=== PATIENT | female | born 1990 | race Caucasian/White ===

== ENCOUNTER 2020-04-09 12:22 | Emergency (ER) | payer OTHER ==
[~2020-04-09] VITALS: Ht 170.2 cm; Wt 107.5 kg
[2020-04-09 12:27] VITALS: BP 139/90; Ht 170.2 cm; Wt 107.5 kg
[2020-04-09 13:51] LABS: microscopic required? YES; urine erythrocyte 3+ (NEGATIVE)
== END 2020-04-09 14:59 | disposition home or self-care (01) ==
LOC: ED 12:22
PROVIDERS: Emergency Medicine
DX: N39.0 Urinary tract infection, site not specified (principal)